=== PATIENT | male | born 1960 | race Caucasian/White ===

== ENCOUNTER 2016-08-16 11:42 | Observation (INO) | payer BC ==
[~2016-08-16] VITALS: Ht 182.9 cm; Wt 84.7 kg
[2016-08-16] MEDS ORDERED: ceFAZolin 2 GM PREMIX 50 ML ONE (12:53)
[2016-08-16] MEDS ORDERED: LACTATED RINGER'S 1000 ML INJ 1,000 ML ONE (12:53)
[2016-08-16] MEDS ORDERED: CLAR10CA3 PO (13:11)
[2016-08-16] MEDS ORDERED: OMEP40CA2 PO (13:11)
[2016-08-16] MEDS ORDERED: LISI10TA3 PO (13:11)
[2016-08-16] MEDS ORDERED: ZANT150T2 PO (13:11)
[2016-08-16 13:12] VITALS: BP 161/94; PULSE 85; RESP 16; TEMP 99.1; O2SAT 99
[2016-08-16] MEDS ORDERED: SODIUM CHLORID 0.9% 500 ML IV SCH (13:15)
[2016-08-16] MEDS ORDERED: METOPROLOL TARTRATE 25 MG TAB PO PRN (13:15)
[2016-08-16] MEDS ORDERED: INSULIN HUMAN REGULAR 1,000 UNITS/10 ML VIAL SQ PRN (13:15)
[2016-08-16] MEDS ORDERED: LACTATED RINGER'S 1000 ML IV SCH (13:15)
[2016-08-16 13:22] LABS: AUTOMATED NEUTROPHIL # 4.1 TH/MM3 (1.8-7.7); BASOPHIL % 0.3 % (0.0-2.0); EOSINOPHIL % 0.5 % (0.0-4.0); HEMATOCRIT 40.1 % (39.0-51.0); HEMO FLAGS DIFF FINAL; LYMPH % 24.9 % (9.0-44.0); LYMPHOCYTE # 1.5 TH/MM3 (1.0-4.8); MEAN CELL VOLUME 91.7 FL (80.0-100.0); MEAN CORPUSCULAR HEMOGLOBIN 31.7 PG (27.0-34.0); MEAN CORPUSCULAR HGB CONC 34.6 % (32.0-36.0); MONO % 7.6 % (0.0-8.0); NEUT % 66.7 % (16.0-70.0); PLATELET COUNT 251 TH/MM3 (150-450); RED BLOOD COUNT 4.37 MIL/MM3 (4.50-5.90); RED CELL DISTRIBUTION WIDTH 13.1 % (11.6-17.2); WHITE BLOOD COUNT 6.2 TH/MM3 (4.0-11.0)
[2016-08-16 13:35] LABS: BICARBONATE 24.3 MEQ/L (21.0-32.0); POTASSIUM 3.9 MEQ/L (3.5-5.1)
[2016-08-16] MEDS ORDERED: DEXAMETHASONE SOD PHOS 4 MG/ML VIAL ONE (13:39)
[2016-08-16] MEDS ORDERED: FAMOTIDINE 20 MG/2 ML VIAL ONE (13:39)
[2016-08-16] MEDS ORDERED: MIDAZOLAM HCL 2 MG/2 ML VIAL ONE (13:39)
[2016-08-16] MEDS ORDERED: ceFAZolin 2 GM PREMIX 50 ML IV SCH (13:45)
[2016-08-16] MEDS ORDERED: BUPIVACAINE/EPINEPHRINE 0.25% 50 ML VIAL INFIL ONE (14:31)
[2016-08-16] MEDS ORDERED: SODIUM CHLORIDE 0.9% FLUSH 5 ML FLUSH IVF PRN (17:30)
[2016-08-16] MEDS ORDERED: diphenhydrAMINE HCL 25 MG CAP PO PRN (17:30)
[2016-08-16] MEDS ORDERED: KETOROLAC TROMETHAMINE 30 MG/ML (IVP) VIAL IVP PRN (17:30)
[2016-08-16] MEDS ORDERED: ACETAMINOPHEN/HYDROcodone 325 MG/5 MG TAB PO PRN ×2 (17:30)
[2016-08-16] MEDS ORDERED: ONDANSETRON HCL 4 MG/2 ML VIAL IV PRN (17:30)
[2016-08-16] MEDS ORDERED: Post-op Orders (for Pharmacy) MISC XX ONE (17:30)
--- NOTE | 2016-08-16 17:37 | HHI.PR ---
Immediate Post Op Note Procedure Date: Aug 16, 2016 Pre Op Diagnosis: Refractory reflux, hiatal hernia Post Op Diagnosis: same Surgeon: Elvin Hu MD Section Housekeeper(s): Dr. Johnathon Rosas need due to the robotic complexity of the operative case Dr. Rosas was need for retraction and endoscopic assistance. Procedure: robotic arpita fundoplication, hiatal hernia repair Findings: large hiatal hernia Complications: none Specimen(s) removed: none Estimated blood loss: 30cc Anesthesia: General Drains: None IVF (2600) Patient to: PACU Patient Condition: Good Elvin Hu MD Aug 16, 2016 17:37
[2016-08-16] MEDS: LACTATED RINGER'S 1000 ML INJ 1,000 ML IV SCH (18:00)
[2016-08-16] MEDS ORDERED: *MEPERIDINE 25 MG INJ VIAL PERIprocedural Use ONLY ONE (18:16)
[2016-08-16] MEDS ORDERED: *morphine SULFATE 8 MG/ML PERIprocedure ONLY ONE (19:00)
[2016-08-16] MEDS: SODIUM CHLORIDE 0.9% FLUSH 5 ML FLUSH IVF SCH (21:00)
[2016-08-16] MEDS: DOCUSATE SODIUM 100 MG CAP PO SCH (23:00)
[2016-08-17] MEDS: HYDROmorphone HCL PF 1 MG/ML VIAL IV PRN ×3 (00:45→10:10)
[2016-08-17] MEDS: LACTATED RINGER'S 1000 ML INJ 1,000 ML IV SCH ×2 (04:00→12:07)
[2016-08-17 04:09] LABS: AUTOMATED NEUTROPHIL # 8.8 TH/MM3 (1.8-7.7); HEMATOCRIT 38.8 % (39.0-51.0); HEMO FLAGS DIFF FINAL; LYMPH % 5.8 % (9.0-44.0); LYMPHOCYTE # 0.6 TH/MM3 (1.0-4.8); MEAN CELL VOLUME 93.3 FL (80.0-100.0); MEAN CORPUSCULAR HEMOGLOBIN 31.2 PG (27.0-34.0); MEAN CORPUSCULAR HGB CONC 33.4 % (32.0-36.0); MONO % 5.3 % (0.0-8.0); NEUT % 88.9 % (16.0-70.0); PLATELET COUNT 257 TH/MM3 (150-450); RED BLOOD COUNT 4.16 MIL/MM3 (4.50-5.90); RED CELL DISTRIBUTION WIDTH 13.4 % (11.6-17.2); WHITE BLOOD COUNT 9.9 TH/MM3 (4.0-11.0)
[2016-08-17 04:40] LABS: BICARBONATE 27.2 MEQ/L (21.0-32.0); POTASSIUM 4.6 MEQ/L (3.5-5.1)
--- NOTE | 2016-08-17 08:54 | EKG ---
Date Performed: 08/16/2016 Time Performed: 13:27:52 PTAGE: 56 years EKG: Sinus rhythm NORMAL ECG NO PREVIOUS TRACING DOCTOR: Thad Holt Interpretating Date/Time 08/17/2016 08:50:11
[2016-08-17] MEDS: DOCUSATE SODIUM 100 MG CAP PO SCH (09:00)
--- NOTE | 2016-08-17 10:34 | RADRPT ---
EXAM DATE/TIME: 08/17/2016 09:28 [place] COMPARISON: No previous studies available for comparison. INDICATIONS : Post Marilyn fundoplication. FLUORO TIME: 0.9 minutes IMAGE COUNT: 8 CONTRAST: 1. Liquid E-Z Paque Barium Sulfate (60% w/v, 41% w.w) MEDICAL HISTORY : None. SURGICAL HISTORY : None. ENCOUNTER: Subsequent ACUITY: 1 day PAIN SCORE: 1/10 LOCATION: Bilateral lower esophagus. FINDINGS: Patient is postop Marilyn fundoplication. There is no obstruction or leakage to the flow of barium at the GE junction. Mild narrowing present. There is a mild esophageal motility disorder with tertiary c ontractions noted. CONCLUSION: 1. Satisfactory postoperative appearance Marilyn fundoplication without leakage or obstruction. No ref lux noted during the examination. Marquez Amin MD on August 17, 2016 at 10:28 Board Certified Radiologist. This report was verified electronically.
[2016-08-17] MEDS: SODIUM CHLORIDE 0.9% FLUSH 5 ML FLUSH IVF SCH (10:36)
[2016-08-17] MEDS ORDERED: *LABETALOL HCL 100 MG/20 ML VIAL PERIprocedural Use ONLY ONE (11:48)
[2016-08-17 12:00] VITALS: BP 160/90; PULSE 68; RESP 17; TEMP 97.8; O2SAT 96
[2016-08-17] MEDS ORDERED: NORMOSOL R INJ 1,000 ML IV ONE (12:00)
[2016-08-17] MEDS ORDERED: ePHEDrine/NS 25 MG/5 ML SYR IV ONE (12:00)
[2016-08-17] MEDS ORDERED: ONDANSETRON HCL 4 MG/2 ML VIAL IV PUSH ONE (12:00)
[2016-08-17] MEDS ORDERED: LISINOPRIL 10 MG TAB PO SCH (12:00)
[2016-08-17] MEDS ORDERED: PHENYLEPH/NS 1000 MCG/10 ML SYR IV ONE (12:00)
[2016-08-17] MEDS ORDERED: PROPOFOL 200 MG/20 ML AMP IV ONE (12:00)
[2016-08-17] MEDS ORDERED: LACTATED RINGER'S 1000 ML INJ 2,000 ML IV ONE (12:00)
[2016-08-17] MEDS ORDERED: ACETAMINOPHEN 1000 MG/100 ML VIAL IV ONE (12:00)
[2016-08-17] MEDS ORDERED: NEOSTIGMINE 3 MG/3 ML SYR IV ONE (12:00)
--- NOTE | 2016-08-17 13:15 | HHI.PR ---
Subjective Subjective Notes no acute issues, ugi negative for stricture or leak, tolerating liquids Objective Vitals/I&O Vital Signs Date Time Temp Pulse Resp B/P Pulse Ox O2 Delivery O2 Flow Rate FiO2 08/17/16 12:00 97.8 68 17 160/90 96 08/17/16 11:40 Room Air 08/17/16 00:00 3 Labs Laboratory Tests Test 08/17/16 03:52 White Blood Count 9.9 Red Blood Count 4.16 Hemoglobin 13.0 Hematocrit 38.8 Mean Corpuscular Volume 93.3 Mean Corpuscular Hemoglobin 31.2 Mean Corpuscular Hemoglobin 33.4 Concent Red Cell Distribution Width 13.4 Platelet Count 257 Mean Platelet Volume 8.4 Neutrophils (%) (Auto) 88.9 Lymphocytes (%) (Auto) 5.8 Monocytes (%) (Auto) 5.3 Eosinophils (%) (Auto) 0.0 Basophils (%) (Auto) 0.0 Neutrophils # (Auto) 8.8 Lymphocytes # (Auto) 0.6 Monocytes # (Auto) 0.5 Eosinophils # (Auto) 0.0 Basophils # (Auto) 0.0 CBC Comment DIFF FINAL Differential Comment Sodium Level 139 Potassium Level 4.6 Chloride Level 104 Carbon Dioxide Level 27.2 Anion Gap 8 Blood Urea Nitrogen 12 Creatinine 1.01 Estimat Glomerular Filtration 77 Rate Random Glucose 155 Calcium Level 8.6 Cardiovascular: Regular Lungs: Clear Abdomen: Other (soft mild incisional tenderness, non distended) Extremities: No edema A/P Assessment and Plan Longstanding, hiatal hernia GERD POD 1 Marilyn fundoplication, hiatal hernia repair UGI Negative PLAN full liq diet pain control PO meds wean IVF OOB IS will plan to d/c home after dinner Elvin Hu MD Aug 17, 2016 13:15
[2016-08-17 16:00] VITALS: BP 147/80; PULSE 82; RESP 19; TEMP 97.1; O2SAT 95
[2016-08-17 16:18] VITALS: RESP 18
--- NOTE | 2016-08-18 17:23 | MP ---
cc: LIDYA HU MD DATE OF SURGERY: 08/16/2016 PREOPERATIVE DIAGNOSIS Refractory reflux, large hiatal hernia. POSTOPERATIVE DIAGNOSIS Refractory reflux, large hiatal hernia. PROCEDURE PERFORMED Robotic-assisted laparoscopic Marilyn fundoplication, hiatal hernia repair. SURGEON Dr. Lidya Hu GRANT COORDINATOR Dr. Johnathon Rosas need due to the robotic complexity of the operative case Dr. Rosas was need for retraction and endoscopic assistance. ANESTHESIA GETA. IV FLUIDS 2600 cc. ESTIMATED BLOOD LOSS 30 cc. SPECIMENS None. DRAINS None. COMPLICATIONS None. FINDINGS A large hiatal hernia defect, floppy wrap around a 52-Cameroonian bougie. vagus anterior and posterior nerves were identified, preserved and remained intact during esophageal hiatus dissection. INDICATION The patient is a 56-year-old male who presented to the office for further workup for evaluation of a large hiatal hernia and refractory reflux. The patient stated his reflux has been going on since 2003 and he has been on multiple medications for this. He does have significant reflux on upper GI study along with a hiatal hernia. Decision was made for operative intervention including a laparoscopic robotic-assisted hiatal hernia repair with Marilyn fundoplication. This was discussed with the patient in detail who states understanding, agreed and would like to proceed with the procedure. DETAILS OF PROCEDURE The patient was taken to the operating suite, placed in supine position. He was prepped and draped in the usual sterile fashion after induction of general endotracheal anesthesia. A brief timeout done stating correct patient, procedure, surgical site and we were all in agreement with this. Attention first directed to the umbilicus where a small 5 mm incision was made supraumbilically 15 cm from the xyphoid process. This was done with an 11-blade over a scope and a visual cannula. The scope was introduced. The abdomen was insufflated to 15-mm pneumoperitoneum. On cursory inspection, no evidence of injury. Several other trocars placed. There was an 8 mm right midquadrant, followed by a 5-mm liver retractor, followed by a left midquadrant 8 mm trocar and a 7-1/2 assist point in the left lateral quadrant. Each of the 8s were directed approximately 10 cm from midline and placed just a little more cephalad closer to the costal angle. Next again the abdomen was insufflated to 15-mm pneumoperitoneum. On cursory inspection with a scope, there was noted be a hiatal hernia defect. The patient was then placed in reverse Trendelenburg and a liver retractor was placed and secured. The 5 mm trocar was upsized to a 12 mm for the robot. We were satisfied with this. The robot was then docked all arms and two robotic arms were used a #1 and #2 port. A harmonic scalpel was placed in #2, the bipolar forceps were placed in #1. Attention was directed to the pars fossa, this was incised. The hiatal hernia defect was then dissected out circumferentially starting at the right crura all the way around to the left crura. The sac was dissected down both bluntly and using harmonic scalpel. This was done posteriorly as well in order to create a window posterior esophageal. The anterior and posterior vagus nerves were identified, preserved and remained intact during esophageal hiatus dissection. Again noted to be a very large hiatal hernia defect. Once the esophagus was completely mobilized and the GE junction was noted to be reduced on the chest and once we were satisfied with this, a Pop was placed around the esophagus for assistance in traction. Next the proximal two-thirds greater curvature of the stomach the short vessels were taken down with a harmonic scalpel. Next the posterior hiatus was closed with 0 silk sutures in a [id number] fashion x3. There was still noted to be a small anterior opening therefore a single 0 simple suture was placed for office manager executive assistant in approximation and decreased the size of the hiatal hernia. A Marilyn wrap then fashioned. The superior portion of the stomach was wrapped posterior. Prior to the doing the hiatal hernia and doing the wrap, a bougie was placed, a bougie was placed, initial 36-Cameroonian was placed, followed by dilators to a 52-Cameroonian. Again, the wrap was then fashioned in a shoeshine technique in order to facilitate a nice flat frothy wrap. Once we were satisfied with this, simple sutures were done with 2-0 silk sutures and clipping the esophagus and approximating the two ends of the stomach to create a wrap. Four sutures were placed relatively close together in order to facilitate approximately a 2.5 cm long wrap. Again, the wrap noted to be floppy, the bougie was removed. The esophagus was noted to sit tension-free inside the abdomen along with the GE junction. Once again we were satisfied. The robot was then undocked and several pictures were taken. Again the wrap noted to sit snugly in place in the GE junction in the abdomen. All lap and instrument counts were correct at the end of the procedure. There was no intraoperative complication. Harmonic scalpel was used for hemostasis. Following abdomen desufflation, the port sites were closed. 0 Vicryl was used to close the 12 mm umbilical port, this was done in a [id number] fashion. The other ports along with the 12 mm were closed with 4-0 Monocryl sutures in subcuticular fashion. Next, sterile dressings including Mastisol and Steri-Strips were placed. The patient tolerated the procedure well. There was complication. The patient was extubated and taken to the PACU. MD JENI Mc/ASUNCION /10:34 PM /4:15 PM [facility]
== END 2016-08-17 18:27 | disposition home or self-care (01) ==
LOC: HSDC 11:42 → HSDI 17:32 → HPAC 08-17 00:11 → N07B 08-17 11:59
PROVIDERS: ADMIT Surgery; ATTEND Surgery
DX: K44.9 Diaphragmatic hernia without obstruction or gangrene (principal); K21.9 Gastro-esophageal reflux disease without esophagitis; I10 Essential (primary) hypertension
CPT/HCPCS: 00790; 43281; 74220; 80048; 85025; 93005; 94150; G0378; J0131; J0690; J1100; J1170; J2175; J2250; J2270; J2370; J2405; J2710; J7120; J3010